=== PATIENT | male | born 1980 | race Caucasian/White ===

== ENCOUNTER 2025-05-20 22:32 | Emergency (ER) | payer MEDICAID, SELFPAY ==
[2025-05-20 22:32] VITALS: BP 186/108; PULSE 91; RESP 20; TEMP 36.8; O2SAT 100; BMI 30.9
[2025-05-20 22:34] VITALS: BP 201/99; PULSE 83; RESP 18; TEMP 36.8; O2SAT 98
[2025-05-20 23:11] LABS: Mucous, Urine 0 SEEN /hpf (<or=2+); Red Blood Cells-Urine 0 SEEN /hpf (0-5); Squamous Epithelial Cells - UA 0 SEEN /hpf (0-5)
[2025-05-20 23:12] LABS: Glucose, Dipstick Normal (Normal); Ketone-Dipstick Negative (Negative); Leukocyte Esterase-Dipstick Negative /ul (Negative); Nitrite-Dipstick Negative (Negative); Occult Blood-Urine Negative /ul (Negative); Protein-Dipstick 15 mg/dl (Negative); Specific Gravity, Urine 1.010 (1.002-1.030); Urine Bilirubin Dipstick Negative (Negative)
[2025-05-20 23:19] LABS: Color, Urine Yellow (Yellow)
[2025-05-20 23:19] LABS: Hematocrit 39.6 % (40-54); Hemoglobin 13.7 g/dL (13.0-16.5); Immature Granulocytes Count 0.030 X10^3/uL (0.0-0.0); Mean Corp Hgb Conc 34.6 g/dL (32-36); Mean Corpuscular Volume 87.0 fL (80-94); Mean Platelet Vol. 9.7 fl (6.2-12.0); NRBC Flagged by Analyzer 0 % (0-5); Platelet Count 185 K/mm3 (150-450); RBC Distribution Width CV 11.9 % (11.6-14.6); RBC Distribution Width SD 38.0 fl (35.1-43.9); Red Blood Count 4.55 M/mm3 (4.6-6.2); White Blood Count 8.2 K/mm3 (4.4-11.0)
[2025-05-20] MEDS: 0.9% Normal Saline (1000mL) 1,000 ML 999 ML IV (23:20)
[2025-05-20] MEDS: Ketorolac 30 MG/ML Syringe IV (23:20)
--- NOTE | 2025-05-20 23:20 | EDS_ITS ---
HPI History of Present Illness Chief Complaint: Male Pain/Injury Informant: patient and spouse/S.O. Narrative Narrative: Patient is a 44-year-old male who reports a past medical history of bulging disks and previous UTI. He states that around 5 or 6:00 this evening he was walking through a store at his significant other and he noted pain in his left lower abdomen radiating towards his groin. He states that there has been no recent trauma or excessive activity. He states that there has been no dysuria or penile discharge or concern for STD. He states that the pain initially made him nauseous and there was no improvement of it with position change. He states that he has taken [id number] medication and giving it time to improve but is not done so and therefore he comes in for evaluation [facility] Medical History no medical history Home Medications ?Medication ?Instructions ?Recorded ?Last Taken ?Type buprenorphine 8 mg-naloxone 2 mg 1 film sublingual BRIONNA LY 05/20/25 Unknown History sublingual film (Suboxone) polyethylene glycol 3350 17 17 g PO DAILY 30 days #510 grams 05/21/25 Unknown Rx gram/dose oral powder (ClearLax) Allergy/AdvReac Type Severity Reaction Status Date / Time No Known Allergies Allergy Verified 05/20/25 22:32 Surgical History no surgical history Social History Smoking Status: Current every day smoker tobacco type: cigarettes ROS ROS ED Constitutional Constitutional ED: Denies chills or fever(s) ENT ENT ED: Denies sore throat Cardiovascular Cardiovascular: Denies chest pain Respiratory/Chest Respiratory/Chest: Denies cough or dyspnea Gastrointestinal Gastrointestinal: Reports abdominal pain and nausea; Denies diarrhea or vomiting Genitourinary Genitourinary ED: Reports urinary frequency; Denies dysuria or hematuria Musculoskeletal Musculoskeletal: Reports back pain Integumentary Denies rash Neurologic Neurologic: Denies headache(s) Hematologic/Lymphatic Hematologic/Lymphatic: Denies easy bleeding or easy bruising EXAM Physical Exam Const Vital Signs: 05/20/25 22:32 05/20/25 22:34 05/20/25 23:34 Temperature 98.2 F 98.2 F 98.2 F Temperature Source Temporal Oral Oral Pulse Rate 91 83 70 Respiratory Rate 20 H 18 18 Blood Pressure 186/108 H 201/99 H 205/102 H Blood Pressure Mean 134 133 136 Pulse Ox 100 98 99 Oxygen Delivery Method Room Air Room Air Room Air 05/21/25 00:32 09/08/25 01:38 Temperature 98.2 F Temperature Source Pulse Rate 94 80 Respiratory Rate 18 16 Blood Pressure 177/108 H 138/82 H Blood Pressure Mean 131 100 Pulse Ox 99 100 Oxygen Delivery Method Room Air Positive well nourished and well developed General Appearance ED: well developed; Negative for pallor HEENT HEENT Narrative: Normocephalic atraumatic Eyes PERRL and EOMs intact bilaterally General Eye ED: Negative for scleral icterus Neck supple Resp normal respiratory effort and clear to auscultation bilaterally Cardio regular rate and regular rhythm Cardio Narrative: Heart is regular rate and rhythm without murmurs rubs or gallop Radial and carotid pulses are equal and symmetric GI non-distended GI Narrative: Abdomen is soft and nondistended with hypoactive bowel sounds. There is pain to palpation in the left lower quadrant with voluntary guarding at this site. No pulsatile mass or peritoneal signs. No rigidity. No fluid wave Auscultation: hypoactive bowel sounds Palpation: soft Back/Spine Back/Spine Narrative: Positive left CVA pain noted Extremity normal to inspection Neuro oriented x3, CN's II-XII intact bilaterally, moves all extremities, no focal motor deficits and no sensory deficits noted Sensorium / Orientation: alert Motor Exam: strength 5/5 throughout Psych mental status grossly normal Skin no rashes or lesions noted Skin Narrative: No overlying soft tissue changes to suggest trauma or infection General Skin Exam: Negative for jaundice or pallor MDM MDM MDM Narrative Medical decision making narrative: Patient arrived to the ER hypertensive but was in pain and otherwise with stable vitals. With sudden onset of pain mainly along the left side radiating towards the genital region concern is for kidney stone versus pyelonephritis versus UTI versus constipation versus diverticulitis. He denied any penile discharge or concern for STD and he stated there was no testicular swelling or masses so I have low concern for epididymitis or testicular torsion or genital infection such as Peewee's gangrene. And his history and exam is most consistent with kidney stone I did elect to perform basic laboratory studies with urine sample and noncontrast CT scan. Blood work showed no sign of urosepsis or acute kidney injury. The urine sample did show +2 bacteria but there was no white blood cells and it was nitrite negative and there was no leukocyte esterase noted going against infection. The CT scan did not reveal an acute kidney stone it did show changes consistent with constipation which could be the cause of his lower left pain. However the patient states that he urinated in the ER and he noticed there was a mass in the toilet and he states his pain has signif icantly improved. Therefore the patient may have truly passed a kidney stone prior to having the CT scan and therefore that is why it was not seen. Overall this time however his vitals have improved his pain has improved he does not have urosepsis acute kidney injury or signs of intestinal infection such as diverticulitis and therefore do not feel the need for further intervention he is otherwise safe for discharge History & Record Review Discussion w/independent historian: Patient and Significant other Lab Data Attestation: I reviewed the patient's lab results. Labs: Laboratory Results - last 24 hr 05/20/25 05/20/25 22:43 23:14 WBC 8.2 RBC 4.55 L Hgb 13.7 Hct 39.6 L MCV 87.0 MCH 30.1 MCHC 34.6 RDW Std Deviation 38.0 RDW Coeff of Forrest 11.9 Plt Count 185 MPV 9.7 Immature Gran % (Auto) 0.400 Neut % (Auto) 73.0 H Lymph % (Auto) 15.2 L Greene % (Auto) 8.3 Eos % (Auto) 2.4 Baso % (Auto) 0.7 Absolute Neuts (auto) 6.0 Absolute Lymphs (auto) 1.25 Nucleated RBC % 0 Sodium 139 Potassium 4.4 Chloride 104 Carbon Dioxide 23.8 Anion Gap 11 BUN 13 Creatinine 0.80 Estim Creat Clear Calc 127.21 Est GFR (MDRD) Non-Af 113 BUN/Creatinine Ratio 16.6 Glucose 103 H Calcium 9.2 Urine Color Yellow Urine Clarity Clear Urine pH 7.0 Ur Specific [place] 1.010 Urine Protein 15 H Urine Glucose (UA) Normal Urine Ketones Negative Urine Occult Blood Negative Urine Nitrite Negative Urine Bilirubin Negative Urine Urobilinogen 1 H Ur Leukocyte Esterase Negative Urine RBC 0 SEEN Urine WBC 0-5 SEEN Ur Squamous Epith Cells 0 SEEN Amorphous Sediment 3+ Urine Bacteria 2+ Urine Mucus 0 SEEN Radiography Diagnostic Testing: Clinical Impression(s) from Imaging Studies Abdomen/Pelvis CT 05/20/25 23:46 IMPRESSION: Large amount of stool throughout the colon. Sigmoid diverticulosis without overt diverticulitis. Moderate thoracolumbar spondylosis. Reading Location: [facility] Discharge Plan Triage Chief Complaint: Male Pain/Injury ED Provider: Cristhian Ordoñez Dx/Rx/DC Orders Clinical Impression: Constipation, Hypertension Instructions: ED Constipation (Adult), ED Kidney Stone, Passed Prescriptions: New polyethylene glycol 3350 [ClearLax] 17 gram/dose powder 17 g PO DAILY 30 Days Qty: 510 0RF No Action buprenorphine-naloxone [Suboxone] 8-2 mg film 1 film sublingual DAILY Primary Care Provider: Care Physician,No Primary Referrals: Care Physician,No Primary [Primary Care Provider] - Activity Restrictions/Additional Instructions: Your workup today shows no sign of urinary tract infection. Your CT scan showed a large amount of constipation and therefore pain in the lower abdomen can be related to intestinal spasm and therefore take MiraLAX daily to help stimulate bowel movements. Your exam was concerning for kidney stone but 1 did not show up on CT scan. However 20% of kidney stones are not seen on CT scan. From your description of what happened in the emergency department you most likely passed it spontaneously. If you have persistent pain despite having bowel movements develop a fever or any further concerns return to the ER for repeat evaluation. Print Language: Liberian Disposition Disposition: Home, Self Care Discharge Date/Time: 05/21/25 01:45
[2025-05-20 23:34] VITALS: BP 205/102; PULSE 70; RESP 18; TEMP 36.8; O2SAT 99
--- NOTE | 2025-05-20 23:46 | CT_ITS ---
PROCEDURE: ABDOMEN/PELVIS WITHOUT CONT 05/20/2025 REASON FOR EXAM: LEFT FLANK PAIN TECHNIQUE: Procedure Code: [id number] Modality: CT Procedure: ABDOMEN/PELVIS WITHOUT CONT Noncontrast technique limits evaluation of the abdominal and pelvic viscera. Coronal and Sagittal reconstruction series were provided. One or more dose reduction techniques were used (e.g., Automated exposure control, adjustment of the mA and/or kV according to patient size, use of iterative reconstruction technique). COMPARISON: None. FINDINGS: Lack of IV and oral contrast limits evaluation on portions of the study. No CT evidence of a urinary stone or obstructive uropathy. A large amount of stool is noted throughout the colon. A few diverticula are noted within the sigmoid colon, without overt inflammatory changes to suggest active diverticulitis. The appendix is visualized and normal-appearing. Minimal atherosclerotic calcifications. CT/Abdomen/Pelvis without Cont IMPRESSION: Large amount of stool throughout the colon. Sigmoid diverticulosis without overt diverticulitis. Moderate thoracolumbar spondylosis. Reading Location: [id number]
[2025-05-20 23:59] LABS: Anion Gap 11 (5-15); BUN 13 mg/dL (4-19); BUN/Creat Ratio 16.6 RATIO (10-20); Calcium,Total 9.2 mg/dL (7.6-11.0); Carbon Dioxide 23.8 mmol/L (21.0-32.0); Chloride 104 mmol/L (98-108); Estimated Creatinine Clearance 127.21 ml/min (50-250); Glucose 103 mg/dL (70-99); Potassium 4.4 mmol/L (3.3-5.1)
[2025-05-21 00:32] VITALS: BP 177/108; PULSE 94; RESP 18; O2SAT 99
[2025-05-21 01:38] VITALS: BP 138/82; PULSE 80; RESP 16; TEMP 36.8; O2SAT 100
== END 2025-05-21 01:45 | disposition home or self-care (01) ==
PROVIDERS: Emergency Provider Emergency Medicine; Visit Provider Emergency Medicine
DX: K59.00 Constipation, unspecified (principal); I10 Essential (primary) hypertension; F17.210 Nicotine dependence, cigarettes, uncomplicated
CPT/HCPCS: 74176; 80048; 81001; 85025; 96361; 96374; 96375; 99283; A4216; J2405